=== PATIENT | male | born 1955 | race Caucasian/White ===

== ENCOUNTER 2021-12-30 10:32 | Emergency (ER) | payer OTHER, BC ==
[2021-12-30 11:55] LABS: Absolute Lymphocytes (CBC) 1.6 K/uL (0.7-4.9); Hematocrit 45.2 % (39.6-49.0); MCV 91.8 fL (80-100); MPV 7.6 fL (7.6-11.3); RBC Red Blood Cell Count 4.92 M/uL (4.33-5.43)
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
[2021-12-30] MEDS ORDERED: CEFAZOLIN SODIUM 1 GM/VIAL ONE (12:06)
[2021-12-30] MEDS ORDERED: MORPHINE 4 MG/ML SYR ONE (12:06)
[2021-12-30] MEDS ORDERED: ONDANSETRON 4 MG/2 ML VIAL ONE (12:06)
[2021-12-30] MEDS ORDERED: DOXYCYCLINE 100 MG CAP PO ONE (12:07)
[2021-12-30] MEDS ORDERED: TETANUS & DIPHTHERIA TOX,ADULT 0.5 ML VIAL ONE (12:07)
[2021-12-30] MEDS ORDERED: NA CHLORIDE 0.9% 500 ML ONE (12:07)
[2021-12-30 12:12] LABS: Albumin 3.9 g/dL (3.4-5.0); Bilirubin Total 0.4 mg/dL (0.2-1.0); Protein, Total 8.4 g/dL (6.4-8.2)
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
[2021-12-30 16:04] VITALS: TEMP 97.4
[2021-12-30 16:22] VITALS: BP 133/76; O2SAT 100
== END 2021-12-30 13:47 | disposition home or self-care (01) ==
LOC: ER 10:32
DX: S01.312A Laceration without foreign body of left ear, initial encounter (principal); S81.832A Puncture wound without foreign body, left lower leg, initial encounter; Z23 Encounter for immunization; V49.9XXA Car occupant (driver) (passenger) injured in unspecified traffic accident, initial encounter; Z72.0 Tobacco use
CPT/HCPCS: 96361; 85025; 36415; 80053; 70450; 71250; 72125; 73590; 90471; 90714; 96375; 96374; 99284; J7040; J2405; J0690